=== PATIENT | female | born 1940 | race Caucasian/White ===

== ENCOUNTER 2022-02-25 14:30 | Emergency (ER) | payer OTHER, SELFPAY ==
[2022-02-25 14:52] VITALS: BP 140/63; PULSE 79; RESP 18; TEMP 36.4; O2SAT 99; BMI 26.8
--- NOTE | 2022-02-25 15:54 | DI.CT.S_ITS ---
PROCEDURE: CT HEAD/BRAIN WO CON INDICATIONS: fall/mental status change TECHNIQUE: Noncontrast 4.5 mm thick angled axial sections acquired from the foramen magnum to the vertex, with coronal and sagittal reformats. For radiation dose reduction, the following was used: automated exposure control, adjustment of mA and/or kV according to patient size. COMPARISON: None. FINDINGS: Image quality: Excellent. CSF spaces: Basal cisterns are patent. No extra-axial fluid collections. The ventricles demonstrate slight prominence, greater in relation when compared to gyral and sulcal atrophy. Brain: No intracranial bleeds or masses. There is cerebral volume loss for age, with resultant ventricular and sulcal prominence. There are periventricular and deep white matter chronic small vessel ischemic changes. There is intracranial internal carotid artery atherosclerosis. Skull and face: Calvarium and visualized facial bones appear intact, without suspicious lesions. Sinuses: Visualized sinuses and mastoids are clear. IMPRESSION: 1. No acute intracranial process. 2. Moderate atrophy and chronic microvascular ischemic changes. Mild prominence of the ventricular system in relation to gyral and sulcal atrophy. While this could represent a central atrophy pattern, recommend correlation to symptoms of normal pressure hydrocephalus. Dictated by: Carmen Francis M.D. on 02/25/2022 at 16:20 Approved by: Carmen Francis M.D. on 02/25/2022 at 16:20
[2022-02-25 18:27] LABS: Alanine Aminotransferase 33 IU/L (<35); Albumin 4.8 g/dL (3.5-5.0); Albumin Globulin Ratio 1.4 (1.0-2.8); Alkaline Phosphatase 57 U/L (38-126); Aspartate Aminotransferase 33 IU/L (14-36); Bilirubin Total 0.3 mg/dL (0.2-1.3); Blood Urea Nitrogen 20 mg/dL (7-17); Calcium 9.4 mg/dL (8.4-10.2); Carbon Dioxide 28 mmol/L (22-32); Chloride 98 mmol/L (98-107); Estimated Glomerular Filt Rate > 60 mL/min (>60); Globulin 3.4 g/dL (1.7-4.1); Glucose 201 mg/dL (80-110); HEMOLYSIS < 15 (0-50); Potassium 3.9 mmol/L (3.4-5.1); Sodium 136 mmol/L (137-145); Total Protein 8.2 g/dL (6.3-8.2)
[2022-02-25 18:32] LABS: Add Manual Diff / Slide Review NO; Basophils Absolute Auto 100 /uL (0-100); Basophils Percent Auto 1.2 % (0-2); Eosinophils Absolute Auto 300 /uL (0-450); Eosinophils Percent Auto 3.9 % (2-4); Hematocrit 39.1 % (36-46); Hemoglobin 13.4 g/dL (12.0-16.0); Lymphocytes Absolute Auto 2500 /uL (1100-4500); Lymphocytes Percent Auto 29.9 % (25-40); Mean Corpuscular HGB Conc 34.3 % (30-36); Mean Corpuscular Hemoglobin 28.7 PG (26-34); Mean Corpuscular Volume 83.7 fL (80-100); Monocytes Absolute Auto 400 /uL (0-900); Monocytes Percent Auto 4.2 % (3-14); Neutrophils Absolute Auto 5100 /uL (1500-7000); Neutrophils Percent Auto 60.8 % (50-75); Platelet Count 266 X10^3/uL (150-400); Red Blood Cell Count 4.67 X10^6/uL (4.0-5.2); White Blood Cell Count 8.4 X10^3/uL (4.5-11.0)
--- NOTE | 2022-02-25 18:52 | ED.FALL ---
HPI - Fall General Chief Complaint: Fall Stated Complaint: GLF Thursday hit head, NO thinners, Confusion, diz Time Seen by Provider: 02/25/22 18:13 Source: patient Mode of arrival: Ambulatory History of Present Illness HPI Narrative: Patient is a 81-year-old female who a history of dementia, hyperlipidemia hypertension presenting today with increasing confusion. They are currently traveling she had not slept for 48 hours she was seen and evaluated in [place] 6 days ago. She was having hallucinations at that time she was given at least 1 shot of Haldol. According to her partner she returned back to her baseline mental status. She was normal for about 2 days she tripped and fell 3 days ago. Her partner found her on the ground. She did hit her head no loss of consciousness she has some abrasions on her right leg. Since then she has had increasing confusion and word trouble finding. Apparently at baseline she does have some more trouble find an but she says it has gotten worse. No fever or chills. She really does not complain of anything but is not acting at her baseline. Patient's partner is doing most of the talking. Related Data Allergies Allergy/AdvReac Type Severity Reaction Status Date / Time Penicillins Allergy Verified 02/25/22 14:58 Sulfa (Sulfonamide Allergy Verified 02/25/22 14:58 Antibiotics) Review of Systems Review of Systems Narrative: GENERAL: Denies chills, fatigue, malaise, fever, sweats, travel HEENT: Denies sinus pain, ear pain, sore throat, difficulty swallowing, neck pain RESPIRATORY: Denies dyspnea, cough, wheezing, hemoptysis, sputum. CARDIOVASCULAR: Denies chest pain, palpitations, orthopnea, edema GASTROINTESTINAL: Denies nausea, vomiting, abdominal pain, diarrhea, constipation, melena. : Denies dysuria, frequency, incontinence, hematuria, urinary retention, flank pain. MUSCULOSKELETAL: Denies weakness, joint pain, or bony pain SKIN: No rash, no erythema, no pruritus NEUROLOGIC: See HPI PSYCHIATRIC: No concerning psychosocial issues. 12 point review of systems is negative except for those stated above and HPI Patient History Social History Smoking Status: Never smoker Smoking Status: Never smoker Substance Use Type: does not use Exam Initial Vital Signs Initial Vital Signs: Vital Signs Temperature 97.5 F L 02/25/22 14:52 Pulse Rate 79 02/25/22 14:52 Respiratory Rate 18 02/25/22 14:52 Blood Pressure 140/63 02/25/22 14:52 Pulse Oximetry 99 02/25/22 14:52 Oxygen Delivery Method 02/25/22 14:52 GENERAL: Alert pleasant 81-year-old confused female and in no acute distress. HEENT: Head atraumatic,EOMI, pupils reactive, face symmetric, moist mucous membranes CARDIOVASCULAR: Regular rate and rhythm without murmurs, rubs or gallops. RESPIRATORY: Breath sounds equal bilaterally, no wheezes rales or rhonchi. ABDOMEN: Soft, nontender. Normoactive bowel sounds all 4 quadrants. No guarding or rebound. EXTREMITIES: Normal range of motion, no clubbing or edema. Neurovascularly intact NEUROLOGICAL: Alert oriented to name only follows commands strength equal bilaterally in all extremities good [id number] good [id number]. Definite word trouble finding with objects, no slurring of speech no facial droop SKIN: Warm, dry, no laceration, no petechiae, no rashes or lesions. Course Orders Ordered: ED Orders 02/25/22 20:28 EKG-12 Lead Stat Vital Signs Vital signs: Vital Signs - 8 hr 02/25/22 14:52 Temperature 97.5 F L Pulse Rate 79 Respiratory Rate 18 Blood Pressure 140/63 Pulse Oximetry 99 Oxygen Delivery Method Room Air - Fall Lab Data Result diagrams: 02/25/22 17:57 02/25/22 17:57 Labs: Lab Results 02/25/22 02/25/22 02/25/22 Range/Units 17:57 17:57 17:57 WBC 8.4 (4.5-11.0) X10^3/uL RBC 4.67 (4.0-5.2) X10^6/uL Hgb 13.4 (12.0-16.0) g/dL Hct 39.1 (36-46) % MCV 83.7 (80-100) fL MCH 28.7 (26-34) PG MCHC 34.3 (30-36) % RDW 14.0 (11.6-14.8) % Plt Count 266 (150-400) X10^3/uL Neut % (Auto) 60.8 (50-75) % Lymph % (Auto) 29.9 (25-40) % Victoria % (Auto) 4.2 (3-14) % Eos % (Auto) 3.9 (2-4) % Baso % (Auto) 1.2 (0-2) % Neut # (Auto) 5100 (3235-1604) /uL Lymph # (Auto) 2500 (2487-9953) /uL Victoria # (Auto) 400 (0-900) /uL Eos # (Auto) 300 (0-450) /uL Baso # (Auto) 100 (0-100) /uL Sodium 136 L (137-145) mmol/L Potassium 3.9 (3.4-5.1) mmol/L Chloride 98 (98-107) mmol/L Carbon Dioxide 28 (22-32) mmol/L BUN 20 H (7-17) mg/dL Creatinine 0.91 (0.52-1.04) mg/dL Estimated GFR > 60 (>60) mL/min BUN/Creatinine Ratio 22.0 (6-22) Glucose 201 H (80-110) mg/dL Lactate (0.7-2.1) mmol/L Calcium 9.4 (8.4-10.2) mg/dL Total Bilirubin 0.3 (0.2-1.3) mg/dL AST 33 (14-36) IU/L ALT 33 (<35) IU/L Alkaline Phosphatase 57 (38-126) U/L Total Creatine Kinase 64 (30-135) U/L CK-MB (CK-2) TNP CK-MB (CK-2) Rel Index TNP Troponin I < 0.012 (0.01-0.034) ng/mL Total Protein 8.2 (6.3-8.2) g/dL Albumin 4.8 (3.5-5.0) g/dL Globulin 3.4 (1.7-4.1) g/dL Albumin/Globulin Ratio 1.4 (1.0-2.8) 02/25/22 Range/Units 17:57 WBC (4.5-11.0) X10^3/uL RBC (4.0-5.2) X10^6/uL Hgb (12.0-16.0) g/dL Hct (36-46) % MCV (80-100) fL MCH (26-34) PG MCHC (30-36) % RDW (11.6-14.8) % Plt Count (150-400) X10^3/uL Neut % (Auto) (50-75) % Lymph % (Auto) (25-40) % Victoria % (Auto) (3-14) % Eos % (Auto) (2-4) % Baso % (Auto) (0-2) % Neut # (Auto) (1775-7389) /uL Lymph # (Auto) (5945-9278) /uL Victoria # (Auto) (0-900) /uL Eos # (Auto) (0-450) /uL Baso # (Auto) (0-100) /uL Sodium (137-145) mmol/L Potassium (3.4-5.1) mmol/L Chloride (98-107) mmol/L Carbon Dioxide (22-32) mmol/L BUN (7-17) mg/dL Creatinine (0.52-1.04) mg/dL Estimated GFR (>60) mL/min BUN/Creatinine Ratio (6-22) Glucose (80-110) mg/dL Lactate 0.7 (0.7-2.1) mmol/L Calcium (8.4-10.2) mg/dL Total Bilirubin (0.2-1.3) mg/dL AST (14-36) IU/L ALT (<35) IU/L Alkaline Phosphatase (38-126) U/L Total Creatine Kinase (30-135) U/L CK-MB (CK-2) CK-MB (CK-2) Rel Index Troponin I (0.01-0.034) ng/mL Total Protein (6.3-8.2) g/dL Albumin (3.5-5.0) g/dL Globulin (1.7-4.1) g/dL Albumin/Globulin Ratio (1.0-2.8) Urine Dip Bedside Urine Glucose Negative Bedside Urine Bilirubin - Negative Bedside Urine Ketone - Negative Bedside Urine Occult Blood - Negative Bedside Urine Protein - Negative Bedside Urine Urobilinogen - Negative Bedside Urine Nitrite - Negative Bedside Urine Leukocytes - Negative Esterase Imaging Data CT scan - head: Radiologist's Impression: [address] [address] [address] Scan Report Signed Patient: Elsy Marquez MR#: [id number] : 1940 Acct:[id number] Age/Sex: 81 / F Date of Service: 02/25/22 Loc: ED Accession Number: [id number] ?? Procedure: CT head/brain wo con Ordering Provider: Anjel Kumari MD PROCEDURE:? CT HEAD/BRAIN WO CON ? INDICATIONS:? fall/mental status change ? TECHNIQUE:? Noncontrast 4.5 mm thick angled axial sections acquired from the foramen magnum to the vertex, with coronal and sagittal reformats.? For radiation dose reduction, the following was used:? automated exposure control, adjustment of mA and/or kV according to patient size.? ? COMPARISON:? None. ? FINDINGS:? Image quality:? Excellent.? ? CSF spaces:? Basal cisterns are patent.? No extra-axial fluid collections.? The ventricles demonstrate slight prominence, greater in relation when compared to gyral and sulcal atrophy. ? Brain:? No intracranial bleeds or masses.? There is cerebral volume loss for age, with resultant ventricular and sulcal prominence.? There are periventricular and deep white matter chronic small vessel ischemic changes.? There is intracranial internal carotid artery atherosclerosis.? ? Skull and face:? Calvarium and visualized facial bones appear intact, without suspicious lesions.? ? Sinuses:? Visualized sinuses and mastoids are clear.? ? IMPRESSION:? ? 1. No acute intracranial process. ? 2. Moderate atrophy and chronic microvascular ischemic changes.? Mild prominence of the ventricular system in relation to gyral and sulcal atrophy.? While this could represent a central atrophy pattern, recommend correlation to symptoms of normal pressure hydrocephalus. ? ? ? Dictated by: Carmen Francis M.D. on 02/25/2022 at 16:20 ? ? Approved by: Carmen Francis M.D. on 02/25/2022 at 16:20 ? MR Brain: Radiologist's Impression: tient: Elsy Marquez MR#: [id number] : 1940 Acct:[id number] Age/Sex: 81 / F Date of Service: 02/25/22 Loc: ED Accession Number: [id number] ?? Procedure: MR head/brain wo con Ordering Provider: Zabrina Golden D.O. PROCEDURE:? MR HEAD/BRAIN WO CON ? INDICATIONS:? can't find words ? TECHNIQUE:? Non-contrast axial T1 spin echo, axial T2 fast spin echo, sagittal and axial FLAIR, coronal T2 fast spin echo, axial gradient echo, axial diffusion and ADC through the brain.? ? COMPARISON:? [facility], CT, CT HEAD/BRAIN WO CON, 02/25/2022, 16:07. ? FINDINGS:? Image quality:? There is motion artifact limiting evaluation.? ? CSF spaces:? There is moderate cerebral volume loss with prominence of the ventricles and sulci.? Basal cisterns are patent.? No extra-axial fluid collections.? ? Brain:? Diffusion-weighted images demonstrate no acute infarcts.? No intracranial hemorrhage, mass, or mass effect.? There are subcortical, periventricular and deep white matter mild chronic small vessel ischemic changes.? Brainstem appears normal.? Diffusion-weighted images demonstrate no acute infarcts.? Normal intravascular flow voids are present.? ? Skull and face:? Calvarial bone marrow is normal in signal.? Orbits are normal.? ? Sinuses:? Sinuses and mastoids are clear.? ? IMPRESSION:? ? 1. No acute intracranial abnormality. ? 2. Moderate cerebral volume loss and mild chronic white matter small vessel ischemic changes.? ? ? Dictated by: Raleigh Cain M.D. on 02/25/2022 at 20:35 ? ? Approved by: Raleigh Cain M.D. on 02/25/2022 at 20:38 ? ECG Data Interpretation: Normal sinus rhythm rate 72 artifact noted MDM Narrative Medical decision making narrative: Patient is obviously confused and has word-finding difficulty. It is very difficult to discern what her baseline is. There is no sign of UTI blood work was overall reassuring. Head CT is also reassuring. However partner is convinced that she is more confused. MRI is ordered to rule out CVA the MRI negative. At this time patient's would like to make the [place]. It does seem like patient has difficulty finding words which may be worsening dementia for exacerbation is. I have no explanation for why his this is worse except that they are traveling and she is out of her normal environment. There is no need for admission at this time. Patient is ambulatory easily without difficulty. Discharge Plan Departure Patient Disposition: Home Clinical Impression: Dementia Activity Restrictions/Additional Instructions: *You have been diagnosed with dementia *What to do: At this time there is no evidence of a bladder infection blood work is overall reassuring. Head CT and MRI do not show any new stroke. *Continue to take medications as directed *Follow up with your primary care provider in 2-3 days or call [phone] *Return to ER if you should have increased confusion, weakness falls or any new, worsening or concerning symptoms Referrals: Jose Osborn MD [Primary Care Provider] - Visit Report Forms: Patient Portal/API
--- NOTE | 2022-02-25 19:05 | DI.MRI.S_ITS ---
PROCEDURE: MR HEAD/BRAIN WO CON INDICATIONS: can't find words TECHNIQUE: Non-contrast axial T1 spin echo, axial T2 fast spin echo, sagittal and axial FLAIR, coronal T2 fast spin echo, axial gradient echo, axial diffusion and ADC through the brain. COMPARISON: [facility], CT, CT HEAD/BRAIN WO CON, 02/25/2022, 16:07. FINDINGS: Image quality: There is motion artifact limiting evaluation. CSF spaces: There is moderate cerebral volume loss with prominence of the ventricles and sulci. Basal cisterns are patent. No extra-axial fluid collections. Brain: Diffusion-weighted images demonstrate no acute infarcts. No intracranial hemorrhage, mass, or mass effect. There are subcortical, periventricular and deep white matter mild chronic small vessel ischemic changes. Brainstem appears normal. Diffusion-weighted images demonstrate no acute infarcts. Normal intravascular flow voids are present. Skull and face: Calvarial bone marrow is normal in signal. Orbits are normal. Sinuses: Sinuses and mastoids are clear. IMPRESSION: 1. No acute intracranial abnormality. 2. Moderate cerebral volume loss and mild chronic white matter small vessel ischemic changes. Dictated by: Raleigh Cain M.D. on 02/25/2022 at 20:35 Approved by: Raleigh Cain M.D. on 02/25/2022 at 20:38
--- NOTE | 2022-02-25 19:24 | PC.NURSE ---
Patient transported to MRI
[2022-02-25 20:28] VITALS: BP 128/74; PULSE 74; RESP 16; O2SAT 99
[2022-02-25 20:37] LABS: Creatine Kinase 64 U/L (30-135)
[2022-02-25 20:38] LABS: Lactate (Lactic Acid) 0.7 mmol/L (0.7-2.1)
[2022-02-25 20:50] LABS: Troponin I < 0.012 ng/mL (0.01-0.034)
== END 2022-02-25 20:44 | disposition home or self-care (01) ==
PROVIDERS: Family Medicine Addiction Medicine; Emergency Provider Emergency Medicine; PCP Family Medicine
DX: F03.90 Unspecified dementia, unspecified severity, without behavioral disturbance, psychotic disturbance, mood disturbance, and anxiety (principal); F05 Delirium due to known physiological condition; R07.9 Chest pain, unspecified
CPT/HCPCS: 70450; 70551; 80053; 81003; 82550; 83605; 84484; 85025; 93005; 99282; 99284

== ENCOUNTER 2022-06-29 20:44 | Emergency (ER) | payer OTHER, SELFPAY ==
[2022-06-29 20:51] VITALS: BP 123/58; PULSE 60; RESP 16; TEMP 36.7; O2SAT 98; BMI 25.5
--- NOTE | 2022-06-29 21:04 | DI.RAD.S_ITS ---
PROCEDURE: XR FINGER RT MIN 2V INDICATIONS: injury/hit baby gate TECHNIQUE: AP hand, 2 views of the 2nd digit acquired. COMPARISON: None. FINDINGS: Bones: No fractures or dislocations. There is mild degeneration of the distal interphalangeal joints. Mild degeneration also demonstrated at the 1st carpometacarpal joint and triscaphe articulation. No suspicious bony lesions. Soft tissues: There is soft tissue swelling of the 2nd digit. A soft tissue laceration is present at the level of the proximal interphalangeal joint. No radiopaque foreign bodies. A small ossicle adjacent to the ulnar styloid likely represents sequelae of a prior small avulsion injury. IMPRESSION: 1. No acute fracture or dislocation. 2. No radiopaque foreign bodies. Dictated by: Raleigh Cain M.D. on 06/29/2022 at 21:49 Approved by: Raleigh Cain M.D. on 06/29/2022 at 21:51
[2022-06-29 22:35] VITALS: PULSE 65; O2SAT 98
[2022-06-29 22:36] VITALS: BP 136/64; PULSE 64; O2SAT 99
[2022-06-29 23:00] VITALS: PULSE 62; O2SAT 97
--- NOTE | 2022-06-29 23:04 | ED.SKABFB ---
HPI - Skin/Abscess/Foreign Bdy General Chief complaint: Skin/Abscess/Foreign Body Stated complaint: right hand/fingers cut Time Seen by Provider: 06/29/22 22:39 Source: patient and family Mode of arrival: Ambulatory History of Present Illness HPI narrative: Patient is a 81-year-old female. Does have a history of dementia and issues with anger who is here for evaluation of a cut to her right index finger. Family states that it happened when she became very angry and was banging a king and they think that she cut her finger in the process of this. It was covered with a bandage prior to arrival but the patient has been missing with a bandage and removing it. This was replaced by nursing in triage. Patient is unable to provide any HPI or review of systems. This information all came from family. It was cleaned out prior to arrival. Related Data Allergies Allergy/AdvReac Type Severity Reaction Status Date / Time Penicillins Allergy Verified 02/25/22 14:58 Sulfa (Sulfonamide Allergy Verified 02/25/22 14:58 Antibiotics) Review of Systems Review of Systems ROS Unobtainable: Unobtainable due to mental condition Integumentary/Breasts Skin/Breast: Reports system reviewed and no additional complaints, except as documented Patient History Social History Smoking Status: Never smoker Smoking Status: Never smoker Substance Use Type: does not use Exam Initial Vital Signs Initial Vital Signs: Vital Signs Temperature 98.0 F 06/29/22 20:51 Pulse Rate 60 06/29/22 20:51 Respiratory Rate 16 06/29/22 20:51 Blood Pressure 123/58 L 06/29/22 20:51 Pulse Oximetry 98 06/29/22 20:51 Oxygen Delivery Method Room Air 06/29/22 20:51 Cardio Pulses: radial pulses present on the right Skin Other: 1 cm laceration on the dorsum of the right index finger just distal to the PIP joint. Procedures Laceration Repair Laceration 1: Site: hand Side (If applicable): right Size (cm): 1 Description: linear Depth: simple, single layer Skin layer closed with: dermabond Course Orders Ordered: ED Orders 06/29/22 21:04 XR finger RT min 2V Stat 06/30/22 00:20 Urine Culture Stat Vital Signs Vital signs: Vital Signs - 8 hr 06/29/22 20:51 06/29/22 22:35 06/29/22 22:36 Temperature 98.0 F Pulse Rate 60 65 Respiratory Rate 16 Blood Pressure 123/58 L 136/64 Pulse Oximetry 98 98 Oxygen Delivery Method Room Air Room Air 06/29/22 22:36 06/29/22 23:00 06/29/22 23:28 Temperature Pulse Rate 64 62 Respiratory Rate Blood Pressure Pulse Oximetry 99 97 99 Oxygen Delivery Method Room Air Room Air Room Air 06/30/22 00:07 06/30/22 01:03 06/30/22 01:05 Temperature Pulse Rate 61 Respiratory Rate Blood Pressure 176/72 H 154/69 H Pulse Oximetry 99 Oxygen Delivery Method Room Air 06/30/22 01:05 Temperature Pulse Rate 61 Respiratory Rate Blood Pressure Pulse Oximetry 99 Oxygen Delivery Method Room Air MDM - Skin/Abscess/Foreign Bdy Lab Data Labs: Point of Care Testing Glucose POC 110 Urine Dip Bedside Urine Glucose Negative Bedside Urine Bilirubin - Negative Bedside Urine Ketone - Negative Urine Specific [place] 1.015 Bedside Urine Occult Blood - Negative Bedside Urine pH 6.0 Bedside Urine Protein - Negative Bedside Urine Urobilinogen - Negative Bedside Urine Nitrite - Negative Bedside Urine Leukocytes - Negative Esterase Imaging Data Extremity x-ray #1: Radiologist's Impression: PROCEDURE:? XR FINGER RT MIN 2V ? INDICATIONS:? injury/hit baby gate ? TECHNIQUE:? AP hand, 2 views of the 2nd digit acquired.? ? COMPARISON:? None. ? FINDINGS:? ? Bones:? No fractures or dislocations.? There is mild degeneration of the distal interphalangeal joints.? Mild degeneration also demonstrated at the 1st carpometacarpal joint and triscaphe articulation.? No suspicious bony lesions.? ? Soft tissues:? There is soft tissue swelling of the 2nd digit.? A soft tissue laceration is present at the level of the proximal interphalangeal joint.? No radiopaque foreign bodies.? A small ossicle adjacent to the ulnar styloid likely represents sequelae of a prior small avulsion injury. ? IMPRESSION:? ? 1. No acute fracture or dislocation. ? 2. No radiopaque foreign bodies.? MDM Narrative Medical decision making narrative: There were no fractures noted on the x-rays. Family states the patient most likely would not tolerate stitching so it was covered with Dermabond and Steri-Strips. Given the fact that it is very close to the finger joint she was placed in a splint and was bandaged fairly heavily to both help limit the range of motion but also help limit the patient's ability to mess with the area. There is no indication for antibiotics. Discharge patient with family with care instructions and return precautions. Discharge Plan Departure Patient Disposition: Home Clinical Impression: Finger laceration Instructions: DI for Laceration Repair-Skin Glue Activity Restrictions/Additional Instructions: The bandage is in the splint that are in place her just to try to prevent Elsy from doing a lot of bending of the finger. The splint can be removed if it is causing her any issues. The Steri-Strips and the skin glue should come off on their own within the next week. Contact her primary doctor for follow-up. Return to the emergency department for any new or worsening symptoms. Referrals: Jose Osborn MD [Primary Care Provider] - Stand Alone Forms: Patient Portal/API
[2022-06-29 23:28] VITALS: O2SAT 99
[2022-06-30 00:07] VITALS: BP 176/72
[2022-06-30 01:03] VITALS: PULSE 61; O2SAT 99
[2022-06-30 01:05] VITALS: BP 154/69; PULSE 61; O2SAT 99
== END 2022-06-30 01:10 | disposition home or self-care (01) ==
PROVIDERS: Emergency Provider Emergency Medicine; PCP Family Medicine
DX: S61.210A Laceration without foreign body of right index finger without damage to nail, initial encounter (principal); F03.90 Unspecified dementia, unspecified severity, without behavioral disturbance, psychotic disturbance, mood disturbance, and anxiety; W45.8XXA Other foreign body or object entering through skin, initial encounter
CPT/HCPCS: 12001; 73140; 81003; 82962; 87086; 99282; 99283

== ENCOUNTER 2023-04-01 10:55 | Emergency (ER) | payer OTHER, SELFPAY ==
[2023-04-01 11:22] VITALS: BP 122/58; PULSE 64; RESP 18; TEMP 36.9; O2SAT 100; BMI 26.7
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
[2023-04-01 12:59] LABS: Appearance Urine UA CLEAR; Bilirubin Urine UA NEGATIVE (NEGATIVE); Color Urine UA YELLOW; Glucose Urine UA NEGATIVE (Negative); Ketones Urine UA NEGATIVE (NEGATIVE); Leukocyte Esterase Urine UA TRACE (NEGATIVE); Nitrite Urine UA NEGATIVE (Negative); Occult Blood Urine UA NEGATIVE (Negative); Protein Urine UA NEGATIVE (Negative); Specific Gravity Urine UA 1.025 (1.000-1.035); Urobilinogen Urine UA 0.2 E.U./dL (0.2)
[2023-04-01 13:12] LABS: Bacteria Urine Occasional (0-1); Culture Indicated Urine Cult Not Indicated; RBC Urine None Seen (0-5/HPF); Squamous Epithelial Cell Urine 0-1 /HPF (0-5/HPF); WBC Urine 0-1/HPF (0-5/HPF)
[2023-04-01 13:30] VITALS: BP 109/55; PULSE 64; RESP 12; O2SAT 100
== END 2023-04-01 13:32 | disposition home or self-care (01) ==
PROVIDERS: Emergency Provider Physician Assistant Medical
DX: S70.11XA Contusion of right thigh, initial encounter (principal); X58.XXXA Exposure to other specified factors, initial encounter; N39.0 Urinary tract infection, site not specified
CPT/HCPCS: 81001; 99281

== ENCOUNTER → 2023-08-31 11:22 | Outpatient (CLI) | payer MEDICARE, SELFPAY ==
[2023-08-31 20:40] LABS: Creatinine Urine Random 55.7 mg/dL
[2023-08-31 20:55] LABS: Microalbumin Urine Random < 0.6 mg/dL (0-1.6)
== END ==
PROVIDERS: PCP Family Medicine; Visit Provider Family Medicine
DX: E11.9 Type 2 diabetes mellitus without complications (principal)
CPT/HCPCS: 82043; 82570

== ENCOUNTER → 2023-09-17 09:50 | Outpatient (CLI) | payer MEDICARE, SELFPAY | PROVIDERS: PCP Family Medicine; Visit Provider Family Medicine | DX: R73.09 Other abnormal glucose (principal); R39.89 Other symptoms and signs involving the genitourinary system; R41.0 Disorientation, unspecified | CPT/HCPCS: 87086 ==

== ENCOUNTER → 2023-10-21 10:53 | Outpatient (CLI) | payer MEDICARE, SELFPAY | PROVIDERS: PCP Family Medicine; Visit Provider Family Medicine | DX: R39.89 Other symptoms and signs involving the genitourinary system (principal) | CPT/HCPCS: 87077; 87086; 87186 ==

== ENCOUNTER → 2023-11-27 14:25 | Outpatient (CLI) | payer MEDICARE, SELFPAY | PROVIDERS: PCP Family Medicine; Visit Provider Family Medicine | DX: N39.0 Urinary tract infection, site not specified (principal) | CPT/HCPCS: 87086 ==

== ENCOUNTER → 2023-12-23 10:45 | Outpatient (CLI) | payer MEDICARE, SELFPAY | PROVIDERS: PCP Family Medicine; Referring Provider Family Medicine; Visit Provider Family Medicine | DX: R19.7 Diarrhea, unspecified (principal); R39.9 Unspecified symptoms and signs involving the genitourinary system; R41.0 Disorientation, unspecified; R32 Unspecified urinary incontinence; R19.4 Change in bowel habit | CPT/HCPCS: 87045 ==

== ENCOUNTER → 2024-01-08 10:16 | Outpatient (CLI) | payer MEDICARE, SELFPAY | PROVIDERS: PCP Family Medicine; Visit Provider Family Medicine | DX: N39.0 Urinary tract infection, site not specified (principal); R39.9 Unspecified symptoms and signs involving the genitourinary system | CPT/HCPCS: 87086 ==

== ENCOUNTER → 2024-02-04 13:09 | Outpatient (CLI) | payer MEDICARE, SELFPAY ==
[2024-02-04 18:44] LABS: Add Manual Diff / Slide Review NO; Basophils Absolute Auto 100 /uL (0-100); Basophils Percent Auto 0.9 % (0-2); Eosinophils Absolute Auto 200 /uL (0-450); Eosinophils Percent Auto 3.4 % (2-4); Hematocrit 36.2 % (36-46); Hemoglobin 12.1 g/dL (12.0-16.0); Lymphocytes Absolute Auto 1100 /uL (1100-4500); Lymphocytes Percent Auto 15.2 % (25-40); Mean Corpuscular HGB Conc 33.5 % (30-36); Mean Corpuscular Hemoglobin 28.5 PG (26-34); Mean Corpuscular Volume 85.1 fL (80-100); Monocytes Absolute Auto 400 /uL (0-900); Neutrophils Absolute Auto 5400 /uL (1500-7000); Neutrophils Percent Auto 74.5 % (50-75); Platelet Count 250 X10^3/uL (150-400); Red Blood Cell Count 4.26 X10^6/uL (4.0-5.2); Red Cell Distribution Width 14.1 % (11.6-14.8); White Blood Cell Count 7.2 X10^3/uL (4.5-11.0)
[2024-02-04 18:55] LABS: Alanine Aminotransferase 20 IU/L (<35); Albumin 3.5 g/dL (3.5-5.0); Albumin Globulin Ratio 1.3 (1.0-2.8); Alkaline Phosphatase 49 U/L (38-126); Aspartate Aminotransferase 26 IU/L (14-36); BUN Creatinine Ratio 30.2 (6-22); Bilirubin Total 0.4 mg/dL (0.2-1.3); Blood Urea Nitrogen 26 mg/dL (7-17); Calcium 9.1 mg/dL (8.4-10.2); Carbon Dioxide 27 mmol/L (22-32); Chloride 104 mmol/L (98-107); Estimated Glomerular Filt Rate > 60 mL/min (>60); Globulin 2.6 g/dL (1.7-4.1); Glucose 236 mg/dL (80-110); HEMOLYSIS < 15 (0-50); Potassium 4.5 mmol/L (3.4-5.1); Sodium 136 mmol/L (137-145); Total Protein 6.1 g/dL (6.3-8.2)
[2024-02-04 19:20] LABS: Thyroid Stimulating Hormone 1.07 uIU/mL (0.47-4.68)
== END ==
PROVIDERS: PCP Family Medicine; Visit Provider Family Medicine
DX: M79.89 Other specified soft tissue disorders (principal); R19.00 Intra-abdominal and pelvic swelling, mass and lump, unspecified site; R10.9 Unspecified abdominal pain; E11.9 Type 2 diabetes mellitus without complications
CPT/HCPCS: 80053; 84443; 85025

== ENCOUNTER → 2024-02-26 15:12 | Outpatient (CLI) | payer MEDICARE, SELFPAY | PROVIDERS: PCP Family Medicine; Referring Provider Family Medicine; Visit Provider Family Medicine | DX: N39.0 Urinary tract infection, site not specified (principal) | CPT/HCPCS: 87086 ==

== ENCOUNTER → 2025-01-06 09:00 | Outpatient (CLI) | payer MEDICARE, SELFPAY | PROVIDERS: PCP Family Medicine; Visit Provider Family Medicine | DX: N39.0 Urinary tract infection, site not specified (principal) | CPT/HCPCS: 87077; 87086; 87186 ==